=== PATIENT | male | born 1990 | race Caucasian/White ===

== ENCOUNTER 2018-05-29 22:03 | Emergency (ER) | payer OTHER ==
[2018-05-29] MEDS ORDERED: LIDOCAINE 1% (MDV) 20 ML INJ SC (23:00)
[2018-05-29] MEDS: LIDOCAINE 1% (MDV) 50 ML INJ INJ (23:08)
[2018-05-29] MEDS: DIPHTH/TET/ACEL PERTUSS (ADULT) 0.5 ML VIAL IM* (23:11)
== END 2018-05-30 00:22 | disposition home or self-care (01) ==
LOC: FTE 05-30 00:22
DX: S61.441A Puncture wound with foreign body of right hand, initial encounter (principal); W01.0XXA Fall on same level from slipping, tripping and stumbling without subsequent striking against object, initial encounter; Y92.9 Unspecified place or not applicable; Z18.89 Other specified retained foreign body fragments; Z23 Encounter for immunization
CPT/HCPCS: 10120; 73090-RT; 73130-RT; 90471; 90715; 99283-25